=== PATIENT | female | born 1945 | race Caucasian/White ===

== ENCOUNTER 2018-11-09 15:13 | Emergency (ER) | payer MEDICARE ==
[~2018-11-09] VITALS: Ht 154.9 cm; Wt 95.5 kg
[~2018-11-09 15:13] MED LIST: HYDR12.55 PO; LEVO150T8 PO; ONDA4TAB6 PO; VERA180T11 PO
[2018-11-09] MEDS ORDERED: ALLO100T PO (16:37)
[2018-11-09] MEDS ORDERED: NIFE60TA69 PO (16:37)
[2018-11-09] MEDS ORDERED: EZET10TA26 PO (16:37)
[2018-11-09] MEDS ORDERED: morphine 4 MG/ML inj SYRINge IV ONE (16:55)
[2018-11-09] MEDS ORDERED: ondansetron/PF 4mg/2ml inj IV ONE ×2 (16:55→17:05)
[2018-11-09] MEDS ORDERED: famotidine/PF 10 mg/ml inj IV ONE (17:05)
[2018-11-09] MEDS ORDERED: pantoprazole 40 MG vial IV ONE (17:05)
[2018-11-09 17:10] LABS: BASOPHILS # (AUTO) 0.1 X10'3 (0-0.2); BASOPHILS % (AUTO) 0.8 % (0-1); EOSINOPHILS % (AUTO) 0.4 % (0-6); HEMATOCRIT 41.9 % (35.0-45.0); HEMOGLOBIN 14.2 g/dl (12.0-16.0); LYMPHOCYTES # (AUTO) 1.1 X10'3 (1.1-4.8); LYMPHOCYTES % (AUTO) 13.5 % (21-51); MEAN CORPUSCULAR HEMOGLOBIN 30.2 PG (27.0-31.0); MEAN CORPUSCULAR VOLUME 88.9 FL (78-98); MEAN PLATELET VOLUME 7.9 FL (7.4-10.4); MONOCYTES # (AUTO) 0.6 X10'3 (0-0.9); MONOCYTES % (AUTO) 8.1 % (2-12); NEUTROPHILS # (AUTO) 6.2 X10'3 (1.8-7.7); NEUTROPHILS % (AUTO) 77.2 % (42-75); PLATELET COUNT 240 X10'3 (140-440); RED BLOOD COUNT 4.71 X10'6 (4.20-5.60); RED CELL DISTRIBUTION WIDTH 14.3 % (11.5-14.5)
[2018-11-09 17:26] LABS: ALANINE AMINOTRANSFERASE 22 U/L (12-78); ALBUMIN 3.4 G/DL (3.4-5.0); ALKALINE PHOSPHATASE 94 IU/L (46-116); ANION GAP 10 (8-16); ASPARTATE AMINO TRANSFERASE 20 U/L (10-37); BILIRUBIN,TOTAL 0.3 MG/DL (0.1-1.0); BLOOD UREA NITROGEN 27 MG/DL (7-18); CALCIUM 9.9 MG/DL (8.5-10.1); CHLORIDE 107 MMOL/L (99-107); CREATININE 0.87 MG/DL (0.40-0.90); GLUCOSE 116 MG/DL (70-104); LIPASE 171 U/L (73-393); POTASSIUM 3.6 MMOL/L (3.5-5.1); SODIUM 141 MMOL/L (135-145); TOTAL CARBON DIOXIDE 24.4 MMOL/L (24-32); TOTAL PROTEIN 6.8 G/DL (6.4-8.2); eGFR 64 ML/MIN
[2018-11-09 17:36] LABS: CLARITY,URINE CLEAR (Clear); COLOR,URINE YELLOW (Yellow); GLUCOSE, URINE NEGATIVE (Neg); KETONES,URINE NEGATIVE (Neg); LEUKOCYTE ESTERASE ,URINE SMALL (Neg); NITRITES, URINE NEGATIVE (Neg); OCCULT BLOOD,URINE NEGATIVE (Neg); PH,URINE 5.5 (4.8-8.0); PROTEIN,URINE NEGATIVE (Neg); UROBILINOGEN,URINE 0.2 E.U/dL (0.2-1.0)
[2018-11-09 17:49] LABS: UA COLLECTION TYPE NON-SPECIFIED
[2018-11-09 17:50] LABS: MUCUS STRANDS MODERATE /LPF (Neg); SQUAMOUS EPITHELIAL CELL,UR MANY /LPF (FEW)
[2018-11-09 17:51] LABS: BACTERIA,URINE 2+ /HPF (Neg); RBC,URINE NONE SEEN /HPF (0-2); WBC,URINE 0-4 /HPF (0-4)
[2018-11-09] MEDS ORDERED: HYDROmorphone 1 mg/ml syringe IV ONE (18:00)
--- NOTE | 2018-11-09 18:56 | NUR ---
PT LETHARGIC, BUT REMAINS ORIENTED X4. REPORTS NAUSEA STILL , BUT PAIN NOW "3 OR [address] CT AT BEDSIDE TO TAKE HER, BUT PT TOO UNCOMFORTABLE. DR. VICKERS AWARE AND REPROTS TO GIVEN HER MORE MEDS THAN DO CT. PT UPDATED. VERBAL FOR TORADOL AND COMPAZINE. CURRENT VSS.
[2018-11-09] MEDS ORDERED: proCHLORperazine 10 MG/2 ml inj IV ONE (19:00)
[2018-11-09] MEDS ORDERED: ketorolac tromethamine 15mg/ml inj. IV ONE (19:00)
[2018-11-09] MEDS ORDERED: haloperidol lactate 5mg/ml inj IM ONE (19:10)
--- NOTE | 2018-11-09 19:13 | NUR ---
UP TO BSC TO VOID WITH 2 PERSON ASSIST. PT ABLE TO TAKE STEBS INDEPENDANTLY, BUT REPORTS DIZZINESS.
--- NOTE | 2018-11-09 21:29 | NUR ---
notified the provider regarding the haloperidol for pat informed that pat is calm ,asleep, vital stable.verbal order to non admin the haloperidol.will follow the order.
[2018-11-09] MEDS ORDERED: HYDR-3965 PO (22:24)
[2018-11-09] MEDS ORDERED: ONDA4TAB6 PO (22:24)
[2018-11-09 23:00] VITALS: BP 134/86
== END 2018-11-09 23:06 | disposition home or self-care (01) ==
LOC: ER 15:14
DX: I44.7 Left bundle-branch block, unspecified (principal); N28.1 Cyst of kidney, acquired; R10.13 Epigastric pain; R42 Dizziness and giddiness; Z90.49 Acquired absence of other specified parts of digestive tract; Z90.710 Acquired absence of both cervix and uterus; Z88.8 Allergy status to other drugs, medicaments and biological substances
CPT/HCPCS: 36415; 74176; 80053; 81001; 83690; 84484; 85025; 93005; 96374; 96375; 96376; 99284; C9113; J0780; J1170; J1885; J2270; J2405; J3490

== ENCOUNTER 2022-04-29 18:39 | Emergency (ER) | payer MEDICARE ==
[~2022-04-29] VITALS: Ht 172.7 cm; Wt 90.9 kg
[~2022-04-29 18:39] MED LIST changes: +ALLO100T PO; +EZET10TA48 PO; +NIFE-33 PO; -VERA180T11 PO; +VERA180T59 PO
[2022-04-29 19:29] LABS: EOSINOPHILS # (AUTO) 0.1 X10'3 (0-0.9); HEMOGLOBIN 14.4 g/dl (12.0-16.0); MEAN PLATELET VOLUME 7.8 FL (7.4-10.4); MONOCYTES # (AUTO) 0.6 X10'3 (0-0.9)
[2022-04-29 19:30] LABS: BASOPHILS % (AUTO) 0.3 % (0-1); EOSINOPHILS % (AUTO) 1.5 % (0-6); HEMATOCRIT 42.6 % (35.0-45.0); LYMPHOCYTES # (AUTO) 0.9 X10'3 (1.1-4.8); MEAN CORPUSCULAR HEMOGLOBIN 30.2 PG (27.0-31.0); MEAN CORPUSCULAR HGB CONC 33.7 g/dL (33.0-36.5); MEAN CORPUSCULAR VOLUME 89.7 FL (78-98); MONOCYTES % (AUTO) 8.9 % (2-12); NEUTROPHILS # (AUTO) 4.7 X10'3 (1.8-7.7); NEUTROPHILS % (AUTO) 75.3 % (42-75); PLATELET COUNT 265 X10'3 (140-440); RED BLOOD COUNT 4.75 X10'6 (4.20-5.60); RED CELL DISTRIBUTION WIDTH 14.4 % (11.5-14.5); WHITE BLOOD COUNT 6.2 X10'3 (4.5-11.0)
[2022-04-29 19:40] LABS: ALANINE AMINOTRANSFERASE 23 U/L (12-78); ALBUMIN 3.5 G/DL (3.4-5.0); ALBUMIN/GLOBULIN RATIO 0.9 (1.1-1.5); ALKALINE PHOSPHATASE 149 IU/L (46-116); ANION GAP 10 (8-16); ASPARTATE AMINO TRANSFERASE 19 U/L (10-37); BILIRUBIN,TOTAL 0.6 MG/DL (0.1-1.0); BLOOD UREA NITROGEN 15 MG/DL (7-18); BUN/CREATININE RATIO 14.6 (6.6-38.0); CHLORIDE 105 MMOL/L (99-107); CREATININE 1.03 MG/DL (0.40-0.90); GLUCOSE 112 MG/DL (70-104); LIPASE 52 U/L (73-393); POTASSIUM 3.5 MMOL/L (3.5-5.1); SODIUM 142 MMOL/L (135-145); TOTAL CARBON DIOXIDE 26.6 MMOL/L (24-32); TOTAL PROTEIN 7.3 G/DL (6.4-8.2); eGFR 52 ML/MIN
[2022-04-29 19:56] LABS: TOTAL CELLS COUNTED 100
[2022-04-29 19:57] LABS: PLATELET ESTIMATE NORMAL; TOXIC GRANULATION 1+; TOXIC VACUOLATION 1+
[2022-04-29] MEDS ORDERED: LIDOcaine Viscous 15ml cup MM ONE (21:20)
[2022-04-29] MEDS ORDERED: mag hydrox/Alum hydrox/simeth 30ml oral suspension PO ONE (21:20)
[2022-04-29 21:53] VITALS: BP 117/73
[2022-04-29] MEDS ORDERED: SUCR1TAB PO (22:11)
[2022-04-29] MEDS ORDERED: ESOM40CA PO (22:11)
== END 2022-04-29 22:15 | disposition home or self-care (01) ==
LOC: ER 18:39
DX: R10.13 Epigastric pain (principal); Z88.8 Allergy status to other drugs, medicaments and biological substances; Z79.899 Other long term (current) drug therapy; Z79.1 Long term (current) use of non-steroidal anti-inflammatories (NSAID); Z91.048 Other nonmedicinal substance allergy status
CPT/HCPCS: 36415; 80053; 83690; 84484; 85007; 85025; 99283; 99284

== ENCOUNTER 2024-10-22 12:54 | Emergency (ER) | payer MEDICARE ==
[~2024-10-22] VITALS: Ht 152.4 cm; Wt 97.5 kg
[~2024-10-22 12:54] MED LIST changes: +SUCR1TAB PO
[2024-10-22 13:34] VITALS: BP 148/87; PULSE 95; RESP 18; TEMP 99.6; O2SAT 96
== END 2024-10-22 18:15 | disposition left against medical advice (07) ==
LOC: ER 12:55
DX: M54.6 Pain in thoracic spine (principal); Z88.8 Allergy status to other drugs, medicaments and biological substances; Z90.49 Acquired absence of other specified parts of digestive tract; Z90.710 Acquired absence of both cervix and uterus
CPT/HCPCS: 99281